=== PATIENT | female | born 1930 | race Caucasian/White ===

== ENCOUNTER 2016-12-16 17:48 | Emergency (ER) | payer MEDICARE, BC ==
--- NOTE | ~2016-12-16 | EKG ---
PATIENT: BERNARDO VIRGEN UNIT #: [id number] Ventricular Rate: 100 BPM Atrial Rate: 100 BPM P-R Interval: 186 ms QRS Duration: 54 ms Q-T Interval: 342 ms QTC Calculation(Bezet): 441 ms P [place]: 73 degrees Calculated R [place]: 47 degrees Calculated T [place]: 59 degrees Diagnosis Line: Normal sinus rhythm Diagnosis Line: Poor R wave progression questionable lead position Diagnosis Line: or body habitus Otherwise normal ECG Diagnosis Line: When compared with ECG of 27-APR-2013 16:09, Diagnosis Line: Septal infarct is now Present Diagnosis Line: Confirmed by MAAME SANTIAGO MD ([id number]) on 12/18/2016 Diagnosis Line: 5:56:46 PM INTERPRETING MD: PAMELA BLUM
--- NOTE | ~2016-12-16 | CT2 ---
[facility] A Service [facility] RADIOLOGY TEXT RESULTS PATIENT: BERNARDO VIRGEN LOCATION: [facility] : 28 UNIT #: [id number] AGE: [address]: Jocelyn Vega MD SEX: F ORDER DR: [id number] [facility] [address] [place], [place] [address] [id number] MR#: [id number] #: [id number] NAME: BERNARDO VIRGEN : 1930 SEX: F STUDY DATE/TIME: 12/16/2016 21:29 UNIT: [facility] ROOM: STUDY DESCRIPTION: CT Abd and Pelv W Cont Attending Physician: Jocelyn Vega M.D. Referring Physician: Jose Palmer M.D. Ordering Physician: Riaz Underwood M.D. Primary Care Physician: Stiven Villegas M.D. MEDICAL IMAGING REPORT This report is preliminary unless electronic signature is present EXAM CT abdomen and pelvis with IV contrast. HISTORY Nausea, vomiting and weakness for 3 days. No injury. TECHNIQUE This CT exam was performed with one or more of the following radiation dose reduction techniques: automatic exposure control, adjustment of mA and/or kV according to patient size, and iterative reconstruction. FINDINGS CT abdomen and pelvis was performed with IV contrast. CT ABDOMEN. Minimal patchy subsegmental infiltrate in the posterior left lung base in the inferior left lower lobe. Minimal bronchiectasis in the inferomedial right lower lobe. The liver, gallbladder, pancreas, and adrenal glands are normal. Right kidney is unremarkable. 1.3 cm incidental cyst in the anterior upper pole of the spleen. 1 cm cyst in the lateral mid-left kidney and 1.5 cm cyst in the anterior upper pole left kidney. No bowel dilatation. No ascites or adenopathy. CT PELVIS. Hysterectomy. Moderate urinary bladder distension. No bowel dilatation. No ascites. Multilevel degenerative changes in the lumbar spine. IMPRESSION 1. No acute findings in the abdomen or pelvis. 2. No bowel obstruction or urinary obstruction. 3. Moderate urinary bladder distension. [facility] A Service of [facility] RADIOLOGY TEXT RESULTS PATIENT: BERNARDO VIRGEN LOCATION: [facility] : 28 UNIT #: [id number] AGE: [address]: Jocelyn Vega MD SEX: F ORDER DR: 4. Hysterectomy. Dictated by... Urbano Marte M.D. THIS IS AN ELECTRONICALLY VERIFIED REPORT Urbano Marte M.D. at 12/17/2016 4:08 PM LJ/janie TD: 12/17/2016 02:13 JOB #: [id number] MEDICAL IMAGING REPORT Page 1 of 1 COPY
[~2016-12-16 17:48] MED LIST: ANTIVERT PO; ANTIVERT12.5 MG PO; BACTRIM DS TABL1 TAB PO; CLOPIDOGREL75 MG PO; FAMOTIDINE PO; LIPITOR PO; LIPITOR20 MG PO; PLAVIX PO; PREDNISONE PO; PREMARIN PO; PRILOSEC20 MG PO; PROTONIX PO; RYBIX ODT50 MG PO; ZOFRAN ODT4 MG/UDTAB PO
[2016-12-16 19:16] LABS: BASOPHIL% 0.6 % (0-2.5); EOSINOPHIL% 0.6 % (0.0-7.0); HEMATOCRIT 32.4 % (35.0-45.0); HEMOGLOBIN 10.4 gm/dL (12.0-16.0); LYMPHOCYTE# 1.3 X10e3 (1.0-3.5); LYMPHOCYTE% 18.5 % (17.0-45.0); MEAN CELL VOLUME 97.5 FL (83-96); MEAN CORPUSCULAR HEMOGLOBIN 31.4 PG (28-34); MEAN CORPUSCULAR HGB CONC 32.2 g/dL (30-36); MEAN PLATELET VOLUME 7.8 FL (6.5-11.5); MONOCYTE# 0.6 X10e3 (0-1.0); NEUTROPHIL% 71.3 % (40-75); PLATELET COUNT 229 X10e3 (140-420); RED BLOOD COUNT 3.32 X10e (3.90-5.30); RED CELL DISTRIBUTION WIDTH 12.4 % (11.0-15.5)
[2016-12-16 19:23] LABS: DIFF IND NO
[2016-12-16 19:30] LABS: ALKALINE PHOSPHATASE 68 U/L (32-92); ALT (SGPT) 10 U/L (10-40); AST (SGOT) 17 U/L (10-42); BILIRUBIN, DIRECT <0.1 mg/dL (0.0-0.2); BILIRUBIN,INDIRECT 0.2 mg/dL (0.0-0.9); BILIRUBIN,TOTAL 0.3 mg/dL (0.2-2.0); BLOOD UREA NITROGEN 23 mg/dL (9-23); BUN/CREATININE RATIO 28.75; CARBON DIOXIDE 29 mmol/L (22-31); CHLORIDE 99 mmol/L (100-111); CREATININE SERUM 0.8 mg/dL (0.6-1.4); GLOM FILT RATE Estimated 66.3 mL/min (>60); GLUCOSE FASTING 87 mg/dL (70-110); LIPASE 18 U/L (22-51); POTASSIUM 4.3 mmol/L (3.5-5.1); SODIUM 137 mmol/L (135-145)
[2016-12-16] MEDS ORDERED: HYDROCODON-ACE1 EAC9 PO (19:48)
[2016-12-16] MEDS ORDERED: MOTION SICKNESS25 M4 PO (19:49)
[2016-12-16] MEDS ORDERED: ZOFRAN ODT4 M1 PO (19:49)
[2016-12-16 20:10] LABS: URINE SOURCE CLEAN CATCH
[2016-12-16 20:14] LABS: URINE APPEARANCE CLEAR; URINE BILIRUBIN NEG (NEG); URINE BLOOD NEG (NEG); URINE COLOR YELLOW; URINE GLUCOSE NEG (NEG); URINE KETONE NEG (NEG); URINE LEUKOCYTE ESTERASE NEG (NEG); URINE NITRATE NEG (NEG); URINE PH 8.5 (5-8); URINE PROTEIN NEG (NEG); URINE SPECIFIC GRAVITY 1.005 (1.003-1.035); URINE UROBILINOGEN 0.2 MG/DL (NEG)
[2016-12-16 20:21] LABS: CULTURE INDICATED? NO
[2016-12-16 20:38] LABS: POC - CKMB <1.0 ng/mL (0.0-7.9); POC - TROPONIN <0.05 ng/mL (<=0.05)
[2016-12-16 21:58] LABS: POC - CKMB <1.0 ng/mL (0.0-7.9); POC - TROPONIN <0.05 ng/mL (<=0.05)
== END 2016-12-16 23:01 | disposition home or self-care (01) ==
LOC: CED 17:48
PROVIDERS: Emergency Medicine
DX: R11.2 Nausea with vomiting, unspecified (principal)
CPT/HCPCS: 74177; 80048; 80076; 81003; 82553; 82947; 83690; 84484; 85025; 93005; 96374; 96375; 99284; J2405; Q9967